=== PATIENT | male | born 1965 | race Caucasian/White ===

== ENCOUNTER 2023-05-29 11:08 | Emergency (ER) | payer BC, SELFPAY ==
[2023-05-29 11:11] VITALS: BP 123/77; PULSE 78; RESP 18; TEMP 36.6; O2SAT 98; BMI 24.4
[2023-05-29 11:18] VITALS: O2SAT 98
--- NOTE | 2023-05-29 11:24 | XR_ITS ---
[facility] [id number] Patient Name: GIRISH MAGANA MRN: [id number] date: 1965 Sex: M Assigned Patient Location: ER Current Patient Location: ER Accession/Order Number: [id number] Exam Date: 05/29/2023 11:41 Report Date: 05/29/2023 12:01 At the request of: ANDRES GONZALEZ Procedure: XR lumbar spine 2-3V EXAMINATION: XR lumbar spine 2-3V HISTORY: atraumatic pain COMPARISON: No relevant comparison available. FINDINGS: BONES: Normal alignment of the lumbar spine with no acute fracture or spondylolisthesis. Mild degenerative spondylosis. Moderate facet osteoarthropathy DISC SPACES: Normal. No significant disc height narrowing, subluxation, or endplate abnormality. PARASPINOUS: Negative. No paraspinous abnormality is seen. OTHER: Vascular calcifications XR/XR lumbar spine 2-3V IMPRESSION: Degenerative changes Electronically authenticated by: LINH PALACIOS Date: 05/29/2023 12:01
--- NOTE | 2023-05-29 11:24 | ED.BACK1 ---
HPI - Back Pain/Injury General Chief Complaint: Back Pain/Injury Stated Complaint: BACK PAIN Time Seen by Provider: 05/29/23 11:09 Source: patient Mode of arrival: walk-in History of Present Illness HPI Narrative: 57-year-old male presents for left lower back pain. It started earlier in this week. The week before he was at a hospital with his father for about nine days and he was sleeping in a chair. There was no direct injury such as a fall. It goes down his left leg particularly the outside of his left calf. Related Data Home Medications Medication Instructions Recorded Confirmed dextroamphetamine-amphetamine ER 30 mg PO QAM 05/29/23 05/29/23 30 mg 24hr capsule,extend release Previous Rx's Medication Instructions Recorded acetaminophen 300 mg-codeine 30 mg 1 tab PO Q6H PRN pain 5 days #20 05/29/23 tablet tabs cyclobenzaprine 10 mg tablet 10 mg PO TID PRN muscle spasm #20 05/29/23 tabs prednisone 10 mg tablet See Rx Instructions .Route 05/29/23 .COMPLEX #30 tabs Allergies Allergy/AdvReac Type Severity Reaction Status Date / Time No Known Drug Allergies Allergy Verified 05/29/23 11:16 Review of Systems ROS Narrative A ten point review of systems is negative except as noted above. Exam Narrative Exam Narrative: Nurses note and vital signs reviewed and patient is not hypoxic. General: The patient uncomfortable and is laying on the bed leaning towards his right. Skin: Warm, dry, no pallor noted. There is no rash noted. Head: Normocephalic, atraumatic Eye: Normal conjunctiva, no drainage Ears, Nose, Mouth, and Throat: oral mucosa is moist. Nares patent. Cardiovascular: Regular Rate and Rhythm Respiratory: Patient is in no distress, no accessory muscle use, lungs are clear to auscultation, no wheezing, rales or rhonchi Back: no bruise or rash. He has no palpable tenderness in his back. Motor strength intact in his lower extremities. No swelling in the left leg. No erythema bruise or rash. GI: soft and nontender Musculoskeletal: The patient has no evidence of calf tenderness, no pitting edema, symmetrical pulses noted bilaterally Neurological: A&O, normal speech Psychiatric: Cooperative Constitutional Vital Signs, click to edit/add: Last Vital Signs Temp 97.8 F 05/29/23 11:11 Pulse 78 05/29/23 11:11 Resp 18 05/29/23 11:11 BP 123/77 05/29/23 11:11 Pulse Ox 98 05/29/23 11:18 O2 Del Method Room Air 05/29/23 11:18 Course Vital Signs Vital signs: Vital Signs Temperature 97.8 F 05/29/23 11:11 Pulse Rate 78 05/29/23 11:11 Respiratory Rate 18 05/29/23 11:11 Blood Pressure 123/77 05/29/23 11:11 Pulse Oximetry 98 05/29/23 11:11 Oxygen Delivery Method Room Air 05/29/23 11:11 Temperature 97.8 F 05/29/23 11:11 Pulse Rate 78 05/29/23 11:11 Respiratory Rate 18 05/29/23 11:11 Blood Pressure 123/77 05/29/23 11:11 Pulse Oximetry 98 05/29/23 11:18 Oxygen Delivery Method Room Air 05/29/23 11:18 MDM - Back Pain/Injury MDM Narrative Medical decision making narrative: x-ray findings are discussed with the patient and his urinalysis is negative. He'll be treated symptomatically. Treatment diagnosis and follow-up were discussed with the patient. Differential Diagnosis Differential diagnosis: Likely lumbar radiculopathy, sciatica, strain of lumbar region and renal colic Lab Data Attestation: I reviewed the patient's lab results. Labs: Lab Results 05/29/23 Range/Units 11:53 Urine Color Lt. yellow (YELLOW) Urine Clarity Clear (CLEAR) Urine pH 8.0 (5.0-9.0) Ur Specific [place] 1.015 (1.005-1.025) Urine Protein Negative (NEG/TRACE) mg/dL Urine Glucose (UA) Negative (NEGATIVE) mg/dL Urine Ketones Negative (NEGATIVE) mg/dL Urine Occult Blood Negative (NEGATIVE) Urine Nitrite Negative (NEGATIVE) Urine Bilirubin Negative (NEGATIVE) Urine Urobilinogen 0.2 (0.2-1.0) EU/dL Ur Leukocyte Esterase Negative (NEGATIVE) Urine RBC 0-2 (0-2) #/HPF Urine WBC 0-2 A (NONE SEEN) #/HPF Ur Squamous Epith Cells Rare (NONE/RARE) #/LPF Urine Crystals None seen (None Seen) #/HPF Urine Bacteria Trace A (NONE SEEN) #/HPF Urine Casts None seen (NONE SEEN) #/LPF Urine Mucus None seen (NONE SEEN) Imaging Data lumbar x-ray: Radiologist's impression: ITS Impressions Lumbar Spine X-Ray 05/29/23 11:24 IMPRESSION: Degenerative changes Electronically authenticated by: LINH PALACIOS Date: 05/29/2023 12:01 Discharge Plan Discharge Chief Complaint: Back Pain/Injury Clinical Impression: Sciatica Patient Disposition: Home, Self-Care Time of Disposition Decision: 12:24 Condition: Good Mode of Transportation: Private Vehicle Prescriptions / Home Meds: New acetaminophen-codeine 300-30 mg tablet 1 tab PO Q6H PRN (Reason: pain) 5 Days Qty: 20 0RF cyclobenzaprine 10 mg tablet 10 mg PO TID PRN (Reason: muscle spasm) Qty: 20 0RF prednisone 10 mg tablet See Rx Instructions .ROUTE .COMPLEX Qty: 30 0RF Rx Instructions: 4 by mouth daily for three days then 3 by mouth daily for three days then 2 by mouth daily for three days then 1 by mouth daily for three days No Action dextroamphetamine-amphetamine 30 mg capsule,extended release 24hr 30 mg PO QAM Instructions: Sciatica (ED), Acute Low Back Pain (ED) Stand Alone Forms: Portal Instructions Referrals: DERRICK KOHLER [Primary Care Provider] - 1 week
[2023-05-29] MEDS: KETOROLAC TROMETHAMINE 60 MG/2 ML VIAL IM (11:52)
[2023-05-29 12:06] LABS: Bilirubin Urine NEGATIVE (NEGATIVE); Blood Urine NEGATIVE (NEGATIVE); Clarity Urine CLEAR (CLEAR); Color Urine LT. YELLOW (YELLOW); Glucose Urine UA NEGATIVE (NEGATIVE); Ketones Urine NEGATIVE (NEGATIVE); Leukocyte Esterase Urine NEGATIVE (NEGATIVE); Nitrite Urine NEGATIVE (NEGATIVE); Protein Urine NEGATIVE (NEG/TRACE); Specific Gravity Urine 1.015 (1.005-1.025); Urobilinogen Urine 0.2 EU/dL (0.2-1.0)
[2023-05-29 12:15] LABS: Bacteria Urine TRACE #/HPF (NONE SEEN); Cast Seen? NONE SEEN #/LPF (NONE SEEN); Crystals Seen? None Seen #/HPF (None Seen); Mucus Urine NONE SEEN (NONE SEEN); RBC Urine 0-2 #/HPF (0-2); Squamous Epithelial Cell Urine RARE #/LPF (NONE/RARE); WBC Urine 0-2 #/HPF (NONE SEEN)
== END 2023-05-29 12:43 | disposition home or self-care (01) ==
PROVIDERS: Emergency Provider Emergency Medicine; PCP Family Medicine
DX: M54.40 Lumbago with sciatica, unspecified side (principal); Z79.899 Other long term (current) drug therapy
CPT/HCPCS: 72100; 81001; 96372; 99284; J1885

== ENCOUNTER 2024-09-19 02:08 | Emergency (ER) | payer BC, SELFPAY ==
[2024-09-19 02:13] VITALS: BP 146/83; PULSE 98; TEMP 36.6; O2SAT 98; BMI 24.4
--- NOTE | 2024-09-19 02:18 | PC.NURSE ---
PT HAD ALL TEETH PULLED AT [facility] YESTERDAY. PT C/O BOO AND SEVERE JAW PAIN AND CHILLS
--- NOTE | 2024-09-19 02:37 | ED.GENADUL1 ---
HPI HPI - General Adult General Chief complaint: Dental/Oral Stated complaint: dental/headache Time Seen by Provider: 09/19/24 02:11 Source: patient Mode of arrival: walk-in Limitations: no limitations History of Present Illness HPI narrative: cc - headache and gum pain Pt had extraction of numerous teeth yesterday and now presents with generalized headache and pain along the portion of the gums in which the teeth were extracted. He did not take any ibuprofen or Tylenol for pain. He is a daily smoker who has continued to smoke since the extraction. No systemic complaints such as fever or vomiting Related Data Home Medications ?Medication ?Instructions ?Recorded ?Confirmed dextroamphetamine-amphetamine ER 30 mg PO QAM 05/29/23 05/29/23 30 mg 24hr capsule,extend release dextroamphetamine-amphetamine 30 30 mg PO DAILY 09/19/24 09/19/24 mg tablet (Adderall) Previous Rx's ?Medication ?Instructions ?Recorded prednisone 10 mg tablet See Rx Instructions .Route 05/29/23 .COMPLEX #30 tabs clindamycin HCl 150 mg capsule 450 mg (3 x 150 mg) PO TID 7 days 09/19/24 #63 caps Allergies Allergy/AdvReac Type Severity Reaction Status Date / Time No Known Drug Allergies Allergy Verified 09/19/24 02:18 Opioid HPI Opioid Management Most Recent Opioid Data: Last Pain Scale 9 Today, 02:13 PFSH PFSH Social History Little interest or pleasure in doing things: not at all Feeling down, depressed, or hopeless: not at all Exam Narrative Exam Narrative: Nurses notes and vital signs reviewed and patient is not hypoxic. afebrile General: Well-appearing and in no apparent distress. Skin: Warm, dry, no pallor noted. No rash. Head: Normocephalic, atraumatic. ENT: The oropharynx is normal. No pharyngeal erythema, uvular edema, tonsillar exudates, asymmetry or trismus. Uvula is midline. Mouth = gumline reveals recent incisions and sutures from extraction of numerous teeth. No bleeding, drainage or since of active infection. There is no evidence of facial asymmetry or abscess formation. Floor of the mouth is soft. No tenderness in the submental or submandibular space. No tongue elevation or deviation. Airway is patent. Neck: The neck demonstrates normal range of motion. No meningeals signs are present. No stridor. No masses or lymphadenopathy noted. Cardiovascular: borderline tachycardia. Respiratory: No accessory muscle use or respiratory distress. Lungs are clear to auscultation, no wheezing, rales or rhonchi Neurological: A&O x4. No cranial nerve dysfunction observed. No truncal ataxia. Moves all extremities. Sensation intact. Psychiatric: Cooperative and interactive. Normal mood and affect. Constitutional Vital Signs, click to edit/add: Last Vital Signs Temp 98 F 09/19/24 02:13 Pulse 98 H 09/19/24 02:13 Resp 20 09/19/24 02:13 BP 146/83 H 09/19/24 02:13 Pulse Ox 98 09/19/24 02:13 Course Vital Signs Vital signs: Vital Signs Temperature 98 F 09/19/24 02:13 Pulse Rate 98 H 09/19/24 02:13 Respiratory Rate 20 09/19/24 02:13 Blood Pressure 146/83 H 09/19/24 02:13 Pulse Oximetry 98 09/19/24 02:13 Temperature 98 F 09/19/24 02:13 Pulse Rate 98 H 09/19/24 02:13 Respiratory Rate 20 09/19/24 02:13 Blood Pressure 146/83 H 09/19/24 02:13 Pulse Oximetry 98 09/19/24 02:13 Medical Decision Making MDM Narrative Medical decision making narrative: The patient was given Tylenol and Motrin for pain. He was started on clindamycin with 450 mg dose being given in the emergency department for discharge. He was discharged home with a prescription for additional clindamycin 450 mg 3 times daily for 7 days. He was instructed to take Tylenol and Motrin at home for any pain and to call his dentist at the early part of next week - September 21. Discharge Plan Discharge Chief Complaint: Dental/Oral Clinical Impression: Headache, Odontalgia, Status post tooth extraction Patient Disposition: Home, Self-Care Time of Disposition Decision: 02:36 Prescriptions / Home Meds: New clindamycin HCl 150 mg capsule 450 mg PO TID 7 Days Qty: 63 0RF No Action dextroamphetamine-amphetamine 30 mg capsule,extended release 24hr 30 mg PO QAM prednisone 10 mg tablet See Rx Instructions .ROUTE .COMPLEX Qty: 30 0RF Rx Instructions: 4 by mouth daily for three days then 3 by mouth daily for three days then 2 by mouth daily for three days then 1 by mouth daily for three days dextroamphetamine-amphetamine [Adderall] 30 mg tablet 30 mg PO DAILY Print Language: Sami Instructions: Acute Headache (ED), Tooth Extraction (DC) Referrals: DERRICK KOHLER [Primary Care Provider, Family Practice] - 1 week
[2024-09-19] MEDS: IBUPROFEN 400 MG TABLET 800 MG PO (03:01)
[2024-09-19] MEDS: CLINDAMYCIN HCL 150 MG CAPSULE 450 MG PO (03:01)
[2024-09-19] MEDS: ACETAMINOPHEN 500 MG TABLET 1000 MG PO (03:01)
== END 2024-09-19 03:07 | disposition home or self-care (01) ==
PROVIDERS: Emergency Provider Emergency Medicine; PCP Family Medicine
DX: K08.89 Other specified disorders of teeth and supporting structures (principal); R51.9 Headache, unspecified; K08.409 Partial loss of teeth, unspecified cause, unspecified class; Z98.890 Other specified postprocedural states
CPT/HCPCS: 99284